=== PATIENT | male | born 1970 | race Caucasian/White ===

== ENCOUNTER 2019-05-17 23:36 | Emergency (ER) | payer MEDICARE, OTHER ==
[~2019-05-17] VITALS: Ht 180.3 cm; Wt 100.0 kg
[2019-05-18] MEDS ORDERED: LIDOcaine 1% 30ml preserv. free vial IJ ONE (00:15)
[2019-05-18] MEDS ORDERED: CEPH500C5 PO (01:41)
[2019-05-18 01:57] VITALS: BP 138/93
== END 2019-05-18 01:59 | disposition home or self-care (01) ==
LOC: ER 23:36
DX: S61.012A Laceration without foreign body of left thumb without damage to nail, initial encounter (principal); Z86.73 Personal history of transient ischemic attack (TIA), and cerebral infarction without residual deficits; Z79.899 Other long term (current) drug therapy; W26.0XXA Contact with knife, initial encounter; Y93.89 Activity, other specified; Y92.89 Other specified places as the place of occurrence of the external cause; Y99.8 Other external cause status
CPT/HCPCS: 12001; 99283; J2001

== ENCOUNTER 2021-03-19 19:11 | Emergency (ER) | payer MEDICARE, MEDICAID | END 2021-03-19 19:35 | disposition left against medical advice (07) | LOC: ER 19:12 | DX: R58 Hemorrhage, not elsewhere classified (principal); Z53.21 Procedure and treatment not carried out due to patient leaving prior to being seen by health care provider ==